=== PATIENT | male | born 1990 | race Caucasian/White ===

== ENCOUNTER 2017-05-01 18:45 | Inpatient (IN) | payer OTHER, BC ==
[~2017-05-01] VITALS: Ht 188 cm; Wt 74.8 kg
--- NOTE | 2017-05-01 21:00 | NUR ---
PRE ADMISSION NOTE Pt is a 26 y/o male, seen at intake, AAOx4, no SOB with mild anxiety, body/bone aches, headache and nausea noted at this time. Discussed with patient the admission policies of the unit. Patient is coherent and able to respond to questions appropriately. Pt is ambulatory with steady gait. Vital signs taken and as follows: BP: 118/75, P: 98, R: 16, O2: 97%, T: 98.2, PA: 9/10. Pt verbalized understanding of instructions and teachings regarding disposal of narcotic and other controlled home medications, unit protocols such as taking of vital signs Q4H and handling and disposal of contraband. Pt reports he takes home medications, but did not bring any with him. Will continue with admission upon pts arrival on the unit.
--- NOTE | 2017-05-01 21:08 | NUR ---
ADMISSION NOTE Pt is a 26 y/o male admitted on 05/01/17 for ETOH, benzo and opiate dependence, arrived on the unit at 2108. Pt reports allergies to Benadryl and peanuts and states he has had over 20 seizures related to w/d and not related. Pt was able to provide UDS. Upon admission COWS 13 and CIWA 14, BP: 118/75, P: 98, R: 16, O2: 97%, T: 98.2, PA: 02/05. Weight 165, height 62. Pt reports he does not have a PCP, has a psychiatrist, smokes 0.5 packs daily, denies being hospitalized within past 30 days, but reports being in [facility] within past 30 days. Pt is able to understand and respond to all questions pertaining to his hospitalization. Substance Abuse History is as follows: 1. Klonazapam PO 12-30 mg daily, last intake of 4 mg on 04/30/17, at this rate for 9 years. 2. Beer 12 pack daily, last intake of 12 pack on 04/29/17, at this rate for 5 years. 3. Wine 1500 ml daily (Beer or Wine daily), last intake of 1500 ml on 04/30/17, at this rate for 5 years. 4. Heroin IV 0.5-1.5 g daily, last intake of 1 gram on 04/30/17, at this rate for 5 years. 5. Fentanyl IV 0.5-1.5 g daily (Heroin or Fentanyl daily), last intake of 1 gram on 04/30/17, at this rate for 5 years. 6. Morphine IV 100 mg occasional/unspecified, last intake of 100 mg 3 weeks ago, at this rate for 9 years. 7. Oxymorphone IV 80 mg occasional/unspecified, last intake of 60 mg 2 weeks ago, at this rate for 7 years. 8. Subutex IV 20-40 mg occasional/unspecified, last intake of 20 mg on 04/28/17, at this rate for 8 months. 9. Hydromorphone IV 50 mg occasional/unspecified, last intake of 50 mg 1.5 weeks ago, at this rate for 3.5 years. 10. Methadone IV 60 mg occasional/unspecified, last intake of 60 mg 3.5 weeks ago, at this rate for 2 months. 11. Percocet IV 30 mg occasional/unspecified, last intake of 30 mg on 04/26/17, at this rate for 12 years. 12. Oxycodone IV 20 mg occasional/unspecified, last intake of 20 mg on 04/26/17, at this rate for 12 years. 13. Marijuana 1-4 grams occasional/Usually on weekends, last intake of 3.5 grams on 04/29/17, at this rate for 12 years. Pts longest sober period for 9 months approximately 7 years ago. Treatment history: [facility] for 6 months in 2015, [facility] for 60 days in 2012, [facility] for 89 days in 2007, [facility] [place] for 2.5 months in 2009, [facility] 3 [place] 2006, [facility] 1 year in 2011. Father has substance use history of ETOH and benzos. Pt reports his father committed suicide 2 years ago. PMH: Anxiety, depression, bipolar disorder, schizoid personality disorder, ADHD, Hepatitis C, pneumonia, septicemia, MRSA, hernia and fractures to the collar bone, ribs and jaw. Pt reports having over 20 seizures related and not related to withdrawal. Pt reports taking medications at home, but did not bring them. Per pt, he takes Klonipin, Vyvance and Adderall. Pt states he does not regularly take Adderall. Upon assessment, pt is AAOx4 and presents with anxiety, pupil dilation, body aches, headache, agitation, nausea, flushed skin, restlessness. Respirations even and unlabored. Denies SOB, chest pain, V/D. Bowel sounds active x 4, abdomen soft. Last BM 2 days ago. PERRLA. Skin intact, no open wounds noted. Pt has large scar over left shoulder from over 7 years ago. Pt denies SI/HI. Pt has hx of two suicide attempts. Educational information provided and left at bedside. Pt oriented to room and encouraged to notify staff with any concerns. Safety measures in place. Call light within reach, side rails up x 2 with pads, bed locked and in low position. Will continue to monitor.
[2017-05-01] MEDS ORDERED: ONDANSETRON ODT 4 MG TAB.RAPDIS SL PRN (23:30)
[2017-05-01] MEDS ORDERED: HYDROXYZINE PAMOATE 25 MG CAPSULE PO PRN (23:30)
[2017-05-01] MEDS ORDERED: LORAZEPAM 1 MG TABLET PO PRN ×2 (23:30)
[2017-05-01] MEDS ORDERED: ACETAMINOPHEN 325 MG TABLET PO PRN (23:30)
[2017-05-01] MEDS ORDERED: MAG HYDROX/AL HYDROX/SIMETH 30 ML LIQUID UDC PO PRN (23:30)
[2017-05-01] MEDS ORDERED: THIAMINE HCL 200 MG/2 ML VIAL IM ONE (23:30)
[2017-05-01] MEDS ORDERED: DICYCLOMINE HCL 20 MG TABLET PO PRN (23:30)
[2017-05-01] MEDS ORDERED: ONDANSETRON 4 MG/2 ML VIAL IM PRN (23:30)
[2017-05-01] MEDS ORDERED: LORAZEPAM 2 MG/1 ML VIAL IM PRN (23:30)
[2017-05-01] MEDS ORDERED: MAGNESIUM HYDROXIDE 30 ML LIQUID UDC PO PRN (23:30)
[2017-05-01] MEDS ORDERED: MIRALAX 17 GM POWD.PACK PO PRN (23:30)
[2017-05-01] MEDS ORDERED: LOPERAMIDE HCL 2 MG CAPSULE PO PRN ×2 (23:30)
[2017-05-01] MEDS ORDERED: diphenhydrAMINE 50 MG CAPSULE PO PRN (23:30)
[2017-05-01] MEDS ORDERED: BUPRENORPHINE HCL 2 MG TAB.SUBL SL PRN (23:45)
[2017-05-02] VITALS: BP 133/79
[2017-05-02] MEDS: IBUPROFEN 600 MG TABLET PO PRN (00:01)
--- NOTE | 2017-05-02 00:01 | NUR ---
PRN ATIVAN 1 MG PO, MOTRIN 600 MG, ZOFRAN 4 MG ODT ADMINISTRATION CIWA 12 at 0000. Pt presents with restlessness, pacing around hallways, moderate anxiety, auditory disturbances "ringing in the ears" and agitation. Pt also presents with headache, body aches, nausea with no vomiting. Safety measures in place. Call light within reach. Will continue to monitor.
[2017-05-02] MEDS ORDERED: THIAMINE HCL 200 MG/2 ML VIAL ONE (00:06)
[2017-05-02] MEDS ORDERED: LORAZEPAM 1 MG TABLET ONE (00:07)
[2017-05-02] MEDS ORDERED: IBUPROFEN 600 MG TABLET ONE (00:07)
[2017-05-02] MEDS ORDERED: ONDANSETRON ODT 4 MG TAB.RAPDIS ONE (00:07)
[2017-05-02 00:24] LABS: *AMPHETAMINE, URINE POSITIVE (NEGATIVE); *BARBITURATE, URINE NEGATIVE (NEGATIVE); *CANNABINOID, URINE POSITIVE (NEGATIVE); *COCCAINE, URINE POSITIVE (NEGATIVE); *OPIATE, URINE POSITIVE (NEGATIVE); *PHENCYCLIDINE SCREEN,URINE NEGATIVE (NEGATIVE)
--- NOTE | 2017-05-02 00:31 | NUR ---
PRN ZOFRAN REASSESSMENT Pt reports some improvement in nausea, reports it is tolerable. Safety measures in place. Call light within reach. Will continue to monitor.
[2017-05-02 00:46] LABS: BASOPHILS # (AUTO) 0.1 K/uL (0.0-8.0); BASOPHILS % (AUTO) 0.7 % (0.0-2.0); EOSINOPHILS # (AUTO) 0.1 K/uL (0.0-0.7); EOSINOPHILS % (AUTO) 1.6 % (0.0-7.0); HEMATOCRIT 47.2 % (40-50); LYMPHOCYTES # (AUTO) 2.5 K/UL (0.8-4.8); LYMPHOCYTES % (AUTO) 30.3 % (20.5-51.5); MEAN CORPUSCULAR HEMOGLOBIN 30.1 UUG (27.0-31.0); MEAN CORPUSCULAR HGB CONC 34 g/dL (32.0-37.0); MEAN CORPUSCULAR VOLUME 88.9 FL (82.0-92.0); MONOCYTES # (AUTO) 0.7 K/UL (0.1-1.30); MONOCYTES % (AUTO) 8.7 % (0.0-11.0); NEUTROPHILS # (AUTO) 4.7 K/UL (1.8-8.9); NEUTROPHILS % (AUTO) 58.7 % (38.5-71.5); PLATELET COUNT (AUTO) 401 K/UL (150-450); RED BLOOD CELL COUNT(AUTO) 5.31 MIL/UL (4.7-6.1); WHITE BLOOD COUNT (AUTO) 8.1 K/UL (4.0-11.2)
[2017-05-02 00:52] LABS: ALANINE AMINOTRANSFERASE 90 U/L (16-63); ALKALINE PHOSPHATASE 48 U/L (50-136); AMYLASE 30 U/L (25-115); ASPARTATE AMINOTRANSFERASE 37 U/L (15-37); BILIRUBIN,TOTAL 0.5 mg/dL (0.2-1.0); CARBON DIOXIDE 26 mmol/L (21-32); CHLORIDE 101 mmol/L (98-107); CREATININE 1.2 mg/dL (0.6-1.3); GLUCOSE 101 mg/dL (74-106); LIPASE 64 U/L (73-393); MAGNESIUM 1.9 mg/dL (1.8-2.4); POTASSIUM 3.5 mmol/L (3.5-5.1); UREA NITROGEN, BLOOD 17 mg/dL (7-18)
[2017-05-02] MEDS ORDERED: BUPRENORPHINE HCL 2 MG TAB.SUBL SL ONE (00:54)
[2017-05-02] MEDS ORDERED: METHOCARBAMOL 750 MG TABLET ONE (00:54)
[2017-05-02] MEDS: METHOCARBAMOL 750 MG TABLET PO PRN ×3 (00:55→17:24)
--- NOTE | 2017-05-02 01:00 | NUR ---
PRN SUBUTEX 4 MG AND ROBAXIN ADMINISTRATION AND ATIVAN AND MOTRIN REASSESSMENT COWS 13, CIWA 10 at 0100. Pt reports mild improvement in anxiety and headache. Pt presents with restlessness, pacing and body aches. Safety measures in place. Call light within reach. Will continue to monitor.
[2017-05-02 01:02] LABS: ETHANOL < 3 MG/DL (0-0)
--- NOTE | 2017-05-02 02:00 | NUR ---
PRN SUBUTEX 4 MG AND ROBAXIN REASSESSMENT Pt reports improvement HR, restlessness, anxiety and body aches but symptoms are still present. Pt continues with occasional pacing around hallways. Safety measures in place. Call light within reach. Will continue to monitor.
[2017-05-02] MEDS ORDERED: LISD70CA PO (03:46)
[2017-05-02] MEDS ORDERED: AMPH30CA3 PO (03:46)
[2017-05-02] MEDS ORDERED: CLON1TAB PO (03:46)
[2017-05-02 04:00] VITALS: BP 118/45
--- NOTE | 2017-05-02 07:31 | NUR ---
END OF SHIFT Pt is a 26 y/o male admitted on 05/01/17 for benzo, ETOH, and opiate dependence. Pt has PMH of seizures (over 20 per pt), anxiety, depression, bipolar disorder, schizoid personality disorder, ADHD, Hepatitis C, pneumonia, septicemia, MRSA and fractures to the collar bone, jaw and ribs. Pt will start a 5 day Ativan and 5 day Subutex taper today. Pt presented with anxiety, restlessness, pacing around hallways, decreased appetite, anxiety, pupil dilation, body aches, headache, agitation, nausea, flushed skin, restlessness, anhedonia and dysphoria. PRN medications Ativan 1 mg, Motrin, Zofran odt, Subutex 4 mg and Robaxin administered, effective in S/S of withdrawal AEB COWS 13 CIWA 14 lowered to COWS 9 CIWA 9 during shift. Pt slept 0 hours. Intake 1355 ml, void x 3, stool x 1. Safety measures in place. Call light within reach. Endorsed to day shift nurse.
[2017-05-02 08:00] VITALS: BP 122/70
--- NOTE | 2017-05-02 08:00 | NUR ---
START OF SHIFT RECEIVED PT WALKING AROUND THE UNIT, A/O X4. RESPIRATIONS EQUAL AND UNLABORED. PT C/O OF RESTLESSNESS, ANXIETY, AUDITORY HALLUCINATIONS, SKIN CRAWLING SENSATIONS, BODY ACHES. PT PRESENTED WITH AGITATION, PUPIL DILATION, ANHEDONIA. PT SLEPT 0 HOURS LAST NIGHT. PT IS ON A 5 DAY ATIVAN AND 5 DAY SUBUTEX TAPER STARTING TODAY 05/02/17. ENCOURAGED PT TO DRINK MORE FLUIDS TO HELP IN DETOX PROCESS. SAFETY MEASURES TAKEN, SIDERAILS UP X2, INSTRUCTED PT TO USE CALL LIGHT IF NEEDED. WILL CONTINUE TO MONITOR.
[2017-05-02] MEDS: DOCUSATE SODIUM 250 MG CAPSULE PO SCH (08:55)
[2017-05-02] MEDS: GABAPENTIN 300 MG CAPSULE PO SCH ×3 (08:55→21:37)
[2017-05-02] MEDS: LORAZEPAM 1 MG TABLET PO SCH ×4 (08:55→21:37)
[2017-05-02] MEDS: THIAMINE HCL 100 MG TABLET PO SCH (08:55)
[2017-05-02] MEDS: MULTIVITAMINS,THERAPEUTIC TABLET PO SCH (08:56)
[2017-05-02] MEDS: FOLIC ACID 1 MG TABLET PO SCH (08:56)
[2017-05-02] MEDS: BUPRENORPHINE HCL 2 MG TAB.SUBL SL SCH ×4 (08:56→21:37)
[2017-05-02] MEDS ORDERED: 5 DAY TAPER BUPRENORPHINE -SERENITY PROTOCOL SL PRN (09:00)
[2017-05-02] MEDS ORDERED: 5 DAY TAPER OF LORAZEPAM -SERENITY PROTOCOL PO PRN (09:00)
[2017-05-02] MEDS ORDERED: TUBERCULIN,PURIF.PROT.DERIV. 5 TU/0.1 ML TEST ID ONE (09:00)
[2017-05-02 12:00] VITALS: BP 125/65
[2017-05-02 16:00] VITALS: BP 119/69
--- NOTE | 2017-05-02 17:24 | NUR ---
PRN Pt has back ache 11/05. Robaxin po prn per MD order given and tolerated well.
--- NOTE | 2017-05-02 18:24 | NUR ---
JOHNNY WILKINS Pt observed walking around in the recreation room. No c/o body aches at this time.
--- NOTE | 2017-05-02 18:47 | NUR ---
END OF SHIFT PT IS, A/O X4. RESPIRATIONS EQUAL AND UNLABORED. PT C/O OF RESTLESSNESS, ANXIETY, AUDITORY HALLUCINATIONS, PT STATES, "I HEAR THE SOUND OF RADIO IN THE BACKGROUND". PT REPORTS HAVING SKIN CRAWLING SENSATIONS, INTERMITTENT CHILLS, AND MILD BODY ACHES. PT PRESENTED WITH AGITATION, PUPIL DILATION, ANHEDONIA. PT IS ON A 5 DAY ATIVAN AND 5 DAY SUBUTEX TAPER STARTING TODAY 05/02/17. PT HAD ROBAXIN 750 MG PO PRN AT 1724 FOR BODY ACHES. PT REPORTED IT WAS EFFECTIVE AT REASSEMENT. ENCOURAGED PT TO DRINK MORE FLUIDS TO HELP IN DETOX PROCESS. SAFETY MEASURES TAKEN, SIDERAILS UP X2, INSTRUCTED PT TO USE CALL LIGHT IF NEEDED. WILL GIVE ALL ENDORSEMENT TO DRILLER MACHINE NURSE.
--- NOTE | 2017-05-02 19:30 | NUR ---
START OF SHIFT Pt is a 26 y/o male admitted on 05/01/17 for benzo, ET OH, and opiate dependence. Pt has PMH of seizures (over 20 per pt), anxiety, depression, bipolar disorder, schizoid personality disorder, ADHD, Hepatitis C, pneumonia, septicemia, MRSA and fractures to the collar bone, jaw and ribs. Pt will start a 5 day Ativan and 5 day Subutex taper today. Pt presented with anxiety, restlessness, difficulty sleeping, decreased appetite, moderate body aches, headache, stuffy nose, intermittent tremors, agitation, intermittent nausea, flushed skin. Pt also presents with red eyes and mild eye irritability. Denies auditory hallucinations at this time. Respirations 15, even and unlabored. Denies V/D. Denies chest pain or SOB. Medications due. Safety measures in place. Call light within reach. Will continue to monitor.
[2017-05-02 20:00] VITALS: BP 115/69
[2017-05-03] VITALS: BP 122/70
--- NOTE | 2017-05-03 | NUR ---
COWS/CIWA DEFERRED Pt is laying in bed with eyes closed, COWS/CIWA deferred, to be assessed when pt is awake. Respirations 18, even and unlabored. Safety measures in place. Call light within reach. Will continue to monitor.
[2017-05-03 04:00] VITALS: BP 107/74
--- NOTE | 2017-05-03 04:00 | NUR ---
COWS/CIWA DEFERRED Pt is laying in bed with eyes closed, COWS/CIWA deferred, to be assessed when pt is awake. Respirations 16, even and unlabored. Safety measures in place. Call light within reach. Will continue to monitor.
[2017-05-03 07:07] LABS: HEPATITIS B SURFACE AG Negative (Negative)
--- NOTE | 2017-05-03 07:11 | NUR ---
END OF SHIFT Pt is a 26 y/o male admitted on 05/01/17 for benzo, ET OH, and opiate dependence. Pt has PMH of seizures (over 20 per pt), anxiety, depression, bipolar disorder, schizoid personality disorder, ADHD, Hepatitis C, SI, pneumonia, septicemia, MRSA and fractures to the collar bone, jaw and ribs. Pt started a 5 day Ativan and 5 day Subutex taper on 05/02/17, tolerating well. Pt presented with anxiety, restlessness, difficulty sleeping, decreased appetite, moderate body aches, headache, stuffy nose, intermittent tremors, agitation, intermittent nausea, flushed skin. Pt also presented with red eyes and mild eye irritability. Denies auditory hallucinations. Scheduled medications administered, effective in S/S of withdrawal as verbalized by pt. Last COWS 8 and CIWA 10 at 1999. Pt slept 8 hours. Intake 1333 ml, void x 3, stool x 0. Safety measures in place. Call light within reach. Pts needs have been met. Endorsed to day shift nurse.
--- NOTE | 2017-05-03 07:59 | NUR ---
Start of shift note; Received report from night nurse. Patient is a 26 year old male admitted on 05/01/17 for Benzodiazepine, ETOH, Opiate dependence. Patient reported history of anxiety, depression, Bipolar disorder, ADHD, Hepatitis C, Pneumonia. Patient was placed on a 5 day Ativan and 5 day Subutex tapers, no adverse reactions noted. Patient is on fall and seizure precaution. Bed in lowest position, call light within reach. Will continue to monitor patient.
[2017-05-03 08:00] VITALS: BP 109/68
[2017-05-03] MEDS: BUPRENORPHINE HCL 2 MG TAB.SUBL SL SCH ×3 (09:19→20:59)
[2017-05-03] MEDS: GABAPENTIN 300 MG CAPSULE PO SCH ×3 (09:20→20:59)
[2017-05-03] MEDS: MULTIVITAMINS,THERAPEUTIC TABLET PO SCH (09:20)
[2017-05-03] MEDS: FOLIC ACID 1 MG TABLET PO SCH (09:20)
[2017-05-03] MEDS: DOCUSATE SODIUM 250 MG CAPSULE PO SCH (09:20)
[2017-05-03] MEDS: LORAZEPAM 1 MG TABLET PO SCH ×3 (09:20→20:59)
[2017-05-03] MEDS: THIAMINE HCL 100 MG TABLET PO SCH (09:20)
[2017-05-03 09:26] LABS: BASOPHILS # (AUTO) 0.1 K/uL (0.0-8.0); BASOPHILS % (AUTO) 1.1 % (0.0-2.0); EOSINOPHILS # (AUTO) 0.5 K/uL (0.0-0.7); EOSINOPHILS % (AUTO) 7.1 % (0.0-7.0); HEMATOCRIT 45.1 % (36.7-47.1); HEMOGLOBIN 15.6 g/dL (12.5-16.3); LYMPHOCYTES # (AUTO) 2.7 K/uL (20.0-40.0); LYMPHOCYTES % (AUTO) 37.6 % (20.5-51.5); MEAN CORPUSCULAR HEMOGLOBIN 30.9 uug (23.8-33.4); MEAN CORPUSCULAR HGB CONC 35 g/dL (32.5-36.3); MEAN CORPUSCULAR VOLUME 89.6 fL (73.0-96.2); MONOCYTES # (AUTO) 0.6 K/uL (2.0-10.0); MONOCYTES % (AUTO) 8.1 % (0.0-11.0); NEUTROPHILS # (AUTO) 3.3 K/uL (1.8-8.9); NEUTROPHILS % (AUTO) 46.1 % (38.5-71.5); PLATELET COUNT (AUTO) 289 K/uL (152-348); RED BLOOD CELL COUNT(AUTO) 5.03 MIL/uL (4.06-5.63); WHITE BLOOD COUNT (AUTO) 7.1 K/uL (3.6-10.2)
[2017-05-03 09:42] LABS: BILIRUBIN,DIRECT 0.1 mg/dL (0.0-0.2); BILIRUBIN,TOTAL 0.4 mg/dL (0.2-1.0); CREATININE 1.1 mg/dL (0.6-1.3); PHOSPHOROUS 5.4 mg/dL (2.5-4.9); POTASSIUM 4.3 mmol/L (3.5-5.1); TOTAL PROTEIN, SERUM 7.3 g/dL (6.4-8.2)
[2017-05-03 12:00] VITALS: BP 114/75
[2017-05-03 16:00] VITALS: BP 133/74
--- NOTE | 2017-05-03 18:21 | NUR ---
End of shift note; Patient is AOx4. Patient is a 26 year old male admitted on 05/01/17 for Benzodiazepine, ETOH, Opiate dependence. Patient reported history of anxiety, depression, Bipolar disorder, ADHD, Hepatitis C, Pneumonia. Patient was placed on a 5 day Ativan and 5 day Subutex tapers, no adverse reactions noted. Patient is on fall and seizure precaution. Bed in lowest position, call light within reach. Patient remained compliant with treatment plan and medication regime. Met all needs.
[2017-05-03 20:00] VITALS: BP 119/91
--- NOTE | 2017-05-03 20:00 | NUR ---
Start of Shift Patient is a 26-year old, male, admitted for Benzodiazepine, ETOH and Opiate dependence. Patient reports history of Anxiety, Depression, Bipolar disorder, ADHD, Hepatitis C, Schizoid Personality Disorder and Pneumonia. Pt is allergic to Diphenhydramine and peanuts and is Full Code and on Regular Diet. Patient was placed on a 5 day Ativan and 5 day Subutex tapers, to be completed onn 05/02. No adverse reactions noted. Pt is AAOx4 and with mild anxiety noted. No SOB and not in respi distress. Pt is ambulatory with steady gait and with no skin issues. Fall, universal, seizure and safety prec in place. Call light within reach. No c/o pain at this time. Latest COWS=4 ,CIWA=6. Will continue to monitor.
[2017-05-04] VITALS: BP 112/78
[2017-05-04 04:00] VITALS: BP 118/75
--- NOTE | 2017-05-04 07:29 | NUR ---
End of Shift Patient is a 26-year old, male, admitted for Benzodiazepine, ETOH and Opiate dependence. Patient reports history of Anxiety, Depression, Bipolar disorder, ADHD, Hepatitis C, Schizoid Personality Disorder and Pneumonia. Pt is allergic to Diphenhydramine and peanuts and is Full Code and on Regular Diet. Patient was placed on a 5 day Ativan and 5 day Subutex tapers, to be completed onn 05/02. No adverse reactions noted. Pt is AAOx4 and with mild anxiety noted. No SOB and not in respi distress. Pt is ambulatory with steady gait and with no skin issues. Fall, universal, seizure and safety prec in place. Call light within reach. No c/o pain at this time. Latest COWS=5, CIWA=5, slept for 6 hours. Endorsed to AM shift nurse for continuity of care.
--- NOTE | 2017-05-04 07:37 | NUR ---
BEGINNING OF SHIFT Patient endorsement report received from multicultural manager nurse, all pertinent information discussed. patient is a 26 year old male admitted on: 05/01/2017, patient with admitting Dx: etoh/bzo/opiates dependence, with substance use of: marijuana and cocaine. Patient currently with ongoing 5 day Ativan and 5 day Subutex taper as ordered, well tolerated. patient is scheduled to start day 3 of taper, will monitor closely. During multicultural manager patient received no PRNs during multicultural manager. last ciwa score of: 5, last cow: 5. slept for 6 hours. Received patient in room. Alert and oriented x 4. On fall and seizure precautions. Educated patient on the current plan of care for the day and medication regimen. Safety measures in place. call light kept with in reach, will continue to monitor closely.
[2017-05-04] MEDS ORDERED: BUPRENORPHINE HCL 2 MG TAB.SUBL SL SCH (09:00)
[2017-05-04] MEDS: DOCUSATE SODIUM 250 MG CAPSULE PO SCH (09:00)
[2017-05-04 09:11] VITALS: BP 110/69
[2017-05-04] MEDS: FOLIC ACID 1 MG TABLET PO SCH (09:12)
[2017-05-04] MEDS: MULTIVITAMINS,THERAPEUTIC TABLET PO SCH (09:12)
[2017-05-04] MEDS: GABAPENTIN 300 MG CAPSULE PO SCH ×3 (09:12→21:36)
[2017-05-04] MEDS: LORAZEPAM 1 MG TABLET PO SCH ×4 (09:13→21:36)
[2017-05-04] MEDS: THIAMINE HCL 100 MG TABLET PO SCH (09:14)
[2017-05-04 12:22] VITALS: BP 129/70
[2017-05-04] MEDS: CLONIDINE HCL 0.1 MG TABLET PO PRN (13:09)
--- NOTE | 2017-05-04 13:09 | NUR ---
PRN TYLENOL/CLONIDINE Patient c/o 12/05 headache, provided with non pharmacological interventions with no relief, administered Tylenol 650mg PO As ordered, will monitor effectiveness. Patient was also noted diaphoretic, c/o increase anxiety and agitation, provided with calming reassurance with no relief, administered clonidine 0.1mg PO as ordered, bp: 129/70 HR: 98. will continue to monitor. patient encouraged adequate PO fluid intake as tolerated.
--- NOTE | 2017-05-04 14:09 | NUR ---
TYLENOL/CLONIDINE REASSESSMENT Patient reports medication effective, current pain level 0/10 no further c/o headaches. Clonidine noted effective, patient reports feeling less anxious and less agitated, patient also noted with no diaphoresis, will continue to monitor. bp: 122/68 heart rate: 86
[2017-05-04] MEDS: BUPRENORPHINE HCL 2 MG TAB.SUBL SL SCH ×2 (14:20→21:36)
--- NOTE | 2017-05-04 16:53 | NUR ---
Therapist prompted client about group times. Client stated he will attend all groups today.
[2017-05-04 17:05] VITALS: BP 128/77
--- NOTE | 2017-05-04 18:34 | NUR ---
END OF SHIFT Patient alert and oriented x4, compliant with therapeutic plan of care. Patient with admitting Dx: bzo/opiate/etoh dependence. Patient continues on 5 day Ativan and 5 day Subutex taper as ordered, well tolerated, patient currently on day 3 of taper, well tolerated, no ASE noted. During shift patient was administered PRN: Clonidine and Tylenol as ordered, medication effective one hour post administration. During shift patient also reported mild auditory hallucinations, reporting that he can hear a radio from far away, Dr. Glynn and Dr. Zhong are aware, patient denies any visual hallucinations. Vital signs WNL during shift. 0900 assessment patient presented with: heart rate 90, flushed, difficulty sitting still, mild bone and joint aches, stuffy nose, tremors that can be felt but not seen, mild anxiety, barely sweating, mild auditory hallucinations, and mild agitation with ciwa score of: 6 and cow score of: 9; 1300 assessment patient presented with: mild nausea with no vomiting, tremors that can be felt but not seen, sweat on forehead, anxiety, mild agitation, mild auditory hallucinations and moderate headache with ciwa score of: 14 and cow score of: 9; 1700 assessment patient presented with: c/o chills, mild bone and joint aches, nasal stuffiness, tremors that can be felt but not seen, mild anxiety, barely sweating, and mild agitation with cow score of: 6 and ciwa score of: 4. Detox medication effective at reducing withdrawal symptoms. Patient encouraged adequate PO fluid intake as tolerated. Encouraged to attend group therapies/sessions to learn new coping skills to prevent relapse, denies any SI/HI. Patients Respirations even and unlabored. No SOB noted, lungs are clear upon auscultation. Skin warm and dry to touch. Abdomen soft and non-distended with (+) BS in all 4 quadrants. No complains of N/V/D or constipation noted. Bladder non-distended. Voids independently. Safety measures in place. Call light kept with in reach. All needs met and rendered. Patient endorsed to shift nurse manager nurse, all pertinent information discussed.
--- NOTE | 2017-05-04 19:10 | NUR ---
Start of Shift Patient Received. Patient is in activities room participating in group activities. Patient is a 26 year old admitted on 05/01/17 for Benzo, ETOH, and Opiate Dependence under the care of Dr. Glynn. Patient is currently receiving a 5 day Ativan and 5 day Subutex taper. Patient verbalizes allergies to Peanuts and Benadryl, wishes to be full code, following a regular diet, placed on fall and seizure precautions, and skin noted intact. Patient verbalizes past medical history of anxiety, depression, bipolar, schizoid personality disorder, ADHD, Hep (+), Pneumonia, Septicemia, MRSA, History or hernia, and history of multiple fractures. Per endorsement, patient was given PRN Tylenol and Clonidine with medication noted to be effective. Last noted COWS 4 and CIWA 6. All needs attended to promptly. Will continue plan of care as ordered.
[2017-05-04 20:20] VITALS: BP 124/74
[2017-05-04] MEDS: METHOCARBAMOL 750 MG TABLET PO PRN (21:36)
--- NOTE | 2017-05-04 21:40 | NUR ---
PRN Medication Administration Patient is noted verbalizing increase muscle aches in lower back. PRN Robaxin administered as per order. Will continue to monitor.
--- NOTE | 2017-05-04 22:30 | NUR ---
PRN Medication Reassessment Patient is in bed awake and watching TV. Patient is able to verbalize PRN Robaxin is effective in minimizing muscle aches. PRN medication noted to be effective. Will continue to monitor.
[2017-05-05] VITALS (7 sets, daily range): BP systolic 90–115; BP diastolic 50–66
--- NOTE | 2017-05-05 07:08 | NUR ---
End of Shift Patient is in his room sleeping. Breathing even and non labored. Patient is a 26 year old admitted on 05/01/17 for Benzo, ETOH, and Opiate Dependence and is currently receiving a 5 day Ativan and 5 day Subutex taper. Patient verbalizes allergies to Peanuts and Benadryl, Full Code, Regular Diet, placed on fall and seizure precautions, and skin noted intact. Patient verbalizes past medical history of anxiety, depression, bipolar, schizoid personality disorder, ADHD, Hep C (+), Pneumonia, Septicemia, MRSA, History or hernia, and history of muliptle fractures. Patient was given PRN Robaxin with medication noted to be effective. Last noted COWS 8 and CIWA 9. All needs attended to promptly. Will endorse to continue plan of care as ordered.
--- NOTE | 2017-05-05 08:00 | NUR ---
rec d patient asleep and arousable to verbal tactile stimulation b/p 90/50 hr 78 , patient didnt eat much breakfast some lunch after receiving ativan and motrin for agitation and pain., remains isolative in room with littl disclosure. continue to monitor for safety and withdrawals.
[2017-05-05] MEDS: DOCUSATE SODIUM 250 MG CAPSULE PO SCH (09:00)
[2017-05-05] MEDS: LORAZEPAM 1 MG TABLET PO SCH ×3 (09:00→20:36)
[2017-05-05] MEDS: GABAPENTIN 300 MG CAPSULE PO SCH ×3 (09:00→20:35)
[2017-05-05] MEDS: BUPRENORPHINE HCL 2 MG TAB.SUBL SL SCH ×3 (09:00→20:35)
[2017-05-05] MEDS: FOLIC ACID 1 MG TABLET PO SCH (09:00)
[2017-05-05] MEDS: MULTIVITAMINS,THERAPEUTIC TABLET PO SCH (09:00)
[2017-05-05] MEDS: THIAMINE HCL 100 MG TABLET PO SCH (09:00)
--- NOTE | 2017-05-05 09:00 | NUR ---
received patient asleep arousable to verbal stimuli after shaking , appears sedated , unable to have blood drawn or take breakfast and meds, continue to monitor for safety.
--- NOTE | 2017-05-05 12:23 | NUR ---
therapist prompted client to attend group, Client agreed to attend.
[2017-05-05] MEDS: IBUPROFEN 600 MG TABLET PO PRN (12:59)
[2017-05-05 13:02] LABS: BILIRUBIN,DIRECT 0.1 mg/dL (0.0-0.2); BILIRUBIN,TOTAL 0.4 mg/dL (0.2-1.0); CREATININE 1.1 mg/dL (0.6-1.3); MAGNESIUM 2.1 mg/dL (1.8-2.4); PHOSPHOROUS 3.6 mg/dL (2.5-4.9); POTASSIUM 4.1 mmol/L (3.5-5.1); TOTAL PROTEIN, SERUM 7.9 g/dL (6.4-8.2)
[2017-05-05 13:08] LABS: BASOPHILS # (AUTO) 0.1 K/uL (0.0-8.0); BASOPHILS % (AUTO) 0.9 % (0.0-2.0); EOSINOPHILS # (AUTO) 0.6 K/uL (0.0-0.7); EOSINOPHILS % (AUTO) 7.2 % (0.0-7.0); HEMATOCRIT 44.9 % (36.7-47.1); HEMOGLOBIN 15.6 g/dL (12.5-16.3); LYMPHOCYTES # (AUTO) 2.5 K/uL (20.0-40.0); LYMPHOCYTES % (AUTO) 31.5 % (20.5-51.5); MEAN CORPUSCULAR HGB CONC 35 g/dL (32.5-36.3); MEAN CORPUSCULAR VOLUME 89.1 fL (73.0-96.2); MONOCYTES # (AUTO) 0.7 K/uL (2.0-10.0); MONOCYTES % (AUTO) 8.5 % (0.0-11.0); NEUTROPHILS # (AUTO) 4.2 K/uL (1.8-8.9); NEUTROPHILS % (AUTO) 51.9 % (38.5-71.5); PLATELET COUNT (AUTO) 303 K/uL (152-348); RED BLOOD CELL COUNT(AUTO) 5.04 MIL/uL (4.06-5.63)
[2017-05-05] MEDS ORDERED: KETOROLAC TROMETHAMINE 30 MG INJ IM PRN (15:15)
--- NOTE | 2017-05-05 17:40 | NUR ---
patient out of room more in the afternoon appears lethargic and listless medicated for anxiety and muscles discomfort . continue to monitor for safety and withdrawal
--- NOTE | 2017-05-05 19:00 | NUR ---
Start of Shift Patient Received. Patient is in the activities room participating in group therapy. Patient is a 26 year old male admitted on 05/01/17 for Benzo, ETOH, and Opiate Dependence and is currently receiving a 5 day Ativan and 5 day Subutex taper. Patient verbalizes allergies to Peanuts and Benadryl, Full Code, Regular Diet, placed on fall and seizure precautions, and skin noted intact. Patient verbalizes past medical history of anxiety, depression, bipolar, schizoid personality disorder, ADHD, Hep C (+), Pneumonia, Septicemia, MRSA, History or hernia, and history of multiple fractures. Per endorsement, patient was medicated for pain and anxiety with medications noted to be effective. Last noted COWS 8 and CIWA 9. All needs attended to promptly. Will continue plan of care as ordered.
[2017-05-05] MEDS: BACLOFEN 10 MG TABLET PO SCH (20:36)
[2017-05-06 00:58] VITALS: BP 113/61
[2017-05-06 04:15] VITALS: BP 99/51
--- NOTE | 2017-05-06 07:14 | NUR ---
End of Shift Patient is in bed sleeping. Breathing even and non labored. Patient is a 26 year old male admitted on 05/01/17 for Benzo, ETOH, and Opiate Dependence and continues a 5 day Ativan and 5 day Subutex taper. Patient verbalizes allergies to Peanuts and Benadryl, Full Code, Regular Diet, placed on fall and seizure precautions, and skin noted intact. Patient verbalizes past medical history of anxiety, depression, bipolar, schizoid personality disorder, ADHD, Hep C (+), Pneumonia, Septicemia, MRSA, History or hernia, and history of multiple fractures. No PRN Medications. Last noted COWS 8 and CIWA 5. All needs attended to promptly. Will endorse to continue plan of care as ordered.
--- NOTE | 2017-05-06 07:35 | NUR ---
START OF SHIFT Received report from bladder tier nurse. Pt is lying in bed resting with respirations even and unlabored.. He is a 26 yo male admitted to [facility] on 05/01 for BZD, ETOH, and Opiate dependence. He is A&O and ambulatory. Allergies to peanut and Benadryl, full code status, on a regular diet. PMH of Hepatitis C, PNA, septicemia, MRSA, hernia, fractures, anxiety, depression, bipolar, schizoid personality DO, and ADHD. On admission he reported using Clonazepam 12-30mg per day, beer 12 pack per day, wine 1500mL per day, and heroin or fentanyl 0.5-1.5 grams per day. He has used morphine, oxymorphone, subutex, hydromorphone, methadone, Percocet, and oxycodone unspecified amounts. 5 day Ativan and 5 day Subutex taper started 05/02. Fall and seizure precautions in place. Bed is down with call light in reach.
[2017-05-06 08:00] VITALS: BP 108/65
[2017-05-06] MEDS ORDERED: BUPRENORPHINE HCL 2 MG TAB.SUBL SL SCH (09:00)
[2017-05-06] MEDS: DOCUSATE SODIUM 250 MG CAPSULE PO SCH (09:59)
[2017-05-06] MEDS: FOLIC ACID 1 MG TABLET PO SCH (09:59)
[2017-05-06] MEDS: LORAZEPAM 1 MG TABLET PO SCH ×2 (09:59→20:34)
[2017-05-06] MEDS: BACLOFEN 10 MG TABLET PO SCH ×3 (09:59→20:34)
[2017-05-06] MEDS: MULTIVITAMINS,THERAPEUTIC TABLET PO SCH (09:59)
[2017-05-06] MEDS: THIAMINE HCL 100 MG TABLET PO SCH (09:59)
[2017-05-06] MEDS: GABAPENTIN 300 MG CAPSULE PO SCH ×3 (09:59→20:34)
[2017-05-06] MEDS: BUPRENORPHINE HCL 2 MG TAB.SUBL SL SCH ×2 (09:59→20:34)
[2017-05-06 12:00] VITALS: BP 119/65
[2017-05-06] MEDS: METHOCARBAMOL 750 MG TABLET PO PRN (13:02)
[2017-05-06] MEDS: CLONIDINE HCL 0.1 MG TABLET PO PRN (13:02)
--- NOTE | 2017-05-06 13:04 | NUR ---
PRN Clonidine and Robaxin Pt reports feeling anxious, restless, and having generalized body aches 12/05. HR 102. PRN Clonidine and Robaxin administered.
--- NOTE | 2017-05-06 14:04 | NUR ---
PRN Clonidine and Robaxin reassessment PRN Clonidine and Robaxin somewhat effective. Pt reports anxiety is slightly reduced and he is less restless. Body aches reduced to 4/10. Encouraged relaxation and deep breathing.
[2017-05-06 16:00] VITALS: BP 106/64
--- NOTE | 2017-05-06 19:15 | NUR ---
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 Pt is in his room resting. He is a 26 yo male admitted to [facility] on 05/01 for BZD, ETOH, and Opiate dependence. He is A&O and ambulatory. Allergies to peanut and Benadryl, full code status, on a regular diet. PMH of Hepatitis C, PNA, septicemia, MRSA, hernia, fractures, anxiety, depression, bipolar, schizoid personality DO, and ADHD. On admission he reported using Clonazepam 12-30mg per day, beer 12 pack per day, wine 1500mL per day, and heroin or fentanyl 0.5-1.5 grams per day. He has used morphine, oxymorphone, subutex, hydromorphone, methadone, Percocet, and oxycodone unspecified amounts. 5 day Ativan and 5 day Subutex taper started 05/02. He is compliant with treatment. PRN Clonidine and Robaxin administered. Last COWS 5 and CIWA 3 He drank 2110mL. Fall and seizure precautions in place. Bed is down with call light in reach.
--- NOTE | 2017-05-06 19:15 | NUR ---
Start of Shift Patient Received. Patient is in his room, awake, alert and verbally responsive. Breathing even and non labored. Patient is a 26 year old male admitted on 05/01/17 for Benzo, ETOH, and Opiate Dependence and continues a 5 day Ativan and 5 day Subutex taper. Patient verbalizes allergies to Peanuts and Benadryl, Full Code, Regular Diet, placed on fall and seizure precautions, and skin noted intact. Patient verbalizes past medical history of anxiety, depression, bipolar, schizoid personality disorder, ADHD, Hep C (+), Pneumonia, Septicemia, MRSA, History or hernia, and history of multiple fractures. Patient was given PRN Robaxin and Clonidine with medication noted to be effective. Last noted COWS 5 and CIWA 3. All needs attended to promptly. Will continue plan of care as ordered.
[2017-05-06 20:26] VITALS: BP 112/67
[2017-05-07 00:42] VITALS: BP 110/75
--- NOTE | 2017-05-07 01:13 | NUR ---
Start of Shift Patient Received. Patient is in his room, awake, alert and verbally responsive. Breathing even and non labored. Patient is a 26 year old male admitted on 05/01/17 for Benzo, ETOH, and Opiate Dependence and continues a 5 day Ativan and 5 day Subutex taper. Patient verbalizes allergies to Peanuts and Benadryl, Full Code, Regular Diet, placed on fall and seizure precautions, and skin noted intact. Patient verbalizes past medical history of anxiety, depression, bipolar, schizoid personality disorder, ADHD, Hep C (+), Pneumonia, Septicemia, MRSA, History or hernia, and history of multiple fractures. Patient was given PRN Robaxin and Clonidine with medication noted to be effective. Last noted COWS 5 and CIWA 3. All needs attended to promptly. Will continue plan of care as ordered. Addendum: 05/07/17 at 0120 by KIEL JASON LVN ENTERED IN ERROR
[2017-05-07 04:00] VITALS: BP 101/63
--- NOTE | 2017-05-07 07:12 | NUR ---
End of Shift Patient is in bed sleeping. Breathing even and non labored. Patient is a 26 year old male admitted on 05/01/17 for Benzo, ETOH, and Opiate Dependence and continues a 5 day Ativan and 5 day Subutex taper. Patient verbalizes allergies to Peanuts and Benadryl, Full Code, Regular Diet, placed on fall and seizure precautions, and skin noted intact. Patient verbalizes past medical history of anxiety, depression, bipolar, schizoid personality disorder, ADHD, Hep C (+), Pneumonia, Septicemia, MRSA, History or hernia, and history of multiple fractures. No PRN medications administered. Last noted COWS 4 and CIWA 4. All needs attended to promply. Will endorse to continue plan of care as ordered.
--- NOTE | 2017-05-07 07:45 | NUR ---
START OF SHIFT RECEIVED PT RESTING IN BED, A/O X4, RESPIRATIONS EVEN AND UNLABORED. PT REPORTS HAVING MILD GENERALIZED BODY ACHES AND ANXIETY. PT IS ALLERGIC TO PEANUTS AND BENADRYL ALLERGY. PT IS ON A 5 DAY ATIVAN AND 5 DAY SUBUTEX TAPER THAT ENDS TODAY. SIDE RAILS UP X2, BED IN LOWEST POSITION. CALL LIGHT IS WITHIN REACH. INSTRUCTED PT TO COMSUME MORE FLUIDS TO FACILITATE DETOX PROCESS. WILL CONTINUE TO MONITOR AND PROVIDE SUPPORT.
[2017-05-07 08:00] VITALS: BP 115/65
[2017-05-07] MEDS ORDERED: BUPRENORPHINE HCL 2 MG TAB.SUBL SL SCH (09:00)
[2017-05-07] MEDS ORDERED: LORAZEPAM 1 MG TABLET PO SCH (09:00)
[2017-05-07] MEDS: FOLIC ACID 1 MG TABLET PO SCH (09:20)
[2017-05-07] MEDS: THIAMINE HCL 100 MG TABLET PO SCH (09:20)
[2017-05-07] MEDS: GABAPENTIN 300 MG CAPSULE PO SCH ×3 (09:20→21:50)
[2017-05-07] MEDS: DOCUSATE SODIUM 250 MG CAPSULE PO SCH (09:20)
[2017-05-07] MEDS: BACLOFEN 10 MG TABLET PO SCH ×3 (09:20→21:51)
[2017-05-07] MEDS: MULTIVITAMINS,THERAPEUTIC TABLET PO SCH (09:21)
[2017-05-07 12:00] VITALS: BP 128/76
[2017-05-07 16:00] VITALS: BP 118/68
--- NOTE | 2017-05-07 19:15 | NUR ---
START OF SHIFT NOTE : Pt. is a 26 yo male admitted to [facility] on 05/01 for BZD, ETOH, and Opiate dependence. Allergies to peanut and Benadryl, full code status, on a regular diet. PMH of Hepatitis C, PNA, septicemia, MRSA, hernia, fractures, anxiety, depression, bipolar, schizoid personality DO, and ADHD. Pt. completed his 5 day Ativan and 5 day Subutex taper started on 05/02, tolerated well. He will be D/C tomorrow. He has no complains at this time, watching TV in the activity room. Safety measures in place : bed on lowest position with side rails x2 up for safety, call light within reach. Will continue to monitor closely and offer help.
--- NOTE | 2017-05-07 19:25 | NUR ---
END OF SHIFT PT RESTING IN BED, A/O X4, RESPIRATIONS EVEN AND UNLABORED. PT REPORTS HAVING MILD GENERALIZED BODY ACHES AND ANXIETY. PT WAS ON A 5 DAY ATIVAN AND 5 DAY SUBUTEX TAPER THAT ENDED TODAY 05/07/17. SIDE RAILS UP X2, BED IN LOWEST POSITION. CALL LIGHT IS WITHIN REACH. INSTRUCTED PT TO COMSUME MORE FLUIDS TO FACILITATE DETOX PROCESS. WILL GIVE ALL PERTINENT INFO AND ENDORSEMENT TO SHIPYARD PAINTER NURSE.
[2017-05-07 20:00] VITALS: BP 130/63
[2017-05-07] MEDS ORDERED: DICY20TA28 PO (20:13)
[2017-05-07] MEDS ORDERED: METH-406 PO (20:13)
[2017-05-07] MEDS ORDERED: IBUP-1955 PO (20:13)
[2017-05-07] MEDS ORDERED: GABA-534 PO ×2 (20:13)
--- NOTE | 2017-05-08 06:32 | NUR ---
END OF SHIFT NOTE : Pt. is a 26 yo male [facility] for BZD, ETOH, and Opiate dependence. Allergies to peanut and Benadryl, full code status, on a regular diet. PMH of Hepatitis C, PNA, septicemia, MRSA, hernia, fractures, anxiety, depression, bipolar, schizoid personality DO, and ADHD. Pt. completed his 5 day Ativan and 5 day Subutex taper started on 05/02, tolerated well. He will be D/C today. Pt remains compliant with the treatment plan. No PRNs were given during my shift. V/S remain WNL. RR=16, even and unlabored, lungs clear upon auscultation, abdomen soft and non- distended. Pt denies nausea, vomiting and diarrhea. CIWA and COWS taken when pt. was alert during the night, LAST CIWA=2 ,COWS=2 at 0400 , INTAKE= 1302 ml, voided x4 , slept 5 hours. Safety measures in place : bed on lowest position with side rails x2 up for safety, call light within reach. Will continue to monitor closely and offer help.
--- NOTE | 2017-05-08 07:45 | NUR ---
START OF SHIFT RECEIVED PT RESTING IN BED, A/O X4, RESPIRATIONS EVEN AND UNLABORED. PT REPORTS HAVING MILD ANXIETY. PT IS ALLERGIC TO PEANUTS AND BENADRYL ALLERGY. PT IS TO BE DISCHARGED TODAY. SIDE RAILS UP X2, BED IN LOWEST POSITION. CALL LIGHT IS WITHIN REACH. WILL CONTINUE TO MONITOR AND PROVIDE SUPPORT.
[2017-05-08 08:00] VITALS: BP 103/55
[2017-05-08] MEDS: FOLIC ACID 1 MG TABLET PO SCH (08:11)
[2017-05-08] MEDS: THIAMINE HCL 100 MG TABLET PO SCH (08:11)
[2017-05-08] MEDS: GABAPENTIN 300 MG CAPSULE PO SCH (08:11)
[2017-05-08] MEDS: MULTIVITAMINS,THERAPEUTIC TABLET PO SCH (08:11)
[2017-05-08] MEDS: BACLOFEN 10 MG TABLET PO SCH (08:11)
[2017-05-08] MEDS: DOCUSATE SODIUM 250 MG CAPSULE PO SCH (08:11)
--- NOTE | 2017-05-08 08:18 | NUR ---
PT SIGNED D/C PAPERS. NO HOME MEDICATIONS. VVS.
--- NOTE | 2017-05-08 09:18 | NUR ---
DISCHARGE NOTE PT LEFT UNIT AT 0918 IN STABLE CONDITION WITH ALL BELONGINGS TO [facility] VIA [facility] [facility]. ALL D/C PAPERS SIGNED.
== END 2017-05-08 09:18 | disposition other institution (70) | DRG 895 ==
LOC: SRC 20:21
PROVIDERS: ADMIT Internal Medicine; ATTEND Internal Medicine
PROC: HZ2ZZZZ Detoxification Services for Substance Abuse Treatment (ICD-10-PCS; principal; 2017-05-01)
PROC: HZ41ZZZ Group Counseling for Substance Abuse Treatment, Behavioral (ICD-10-PCS; 2017-05-02)
DX: F10.230 Alcohol dependence with withdrawal, uncomplicated (principal); K70.10 Alcoholic hepatitis without ascites; F31.9 Bipolar disorder, unspecified; F11.23 Opioid dependence with withdrawal; Y90.9 Presence of alcohol in blood, level not specified; F41.1 Generalized anxiety disorder; F90.9 Attention-deficit hyperactivity disorder, unspecified type; Z59.1 Inadequate housing; F17.210 Nicotine dependence, cigarettes, uncomplicated; F13.230 Sedative, hypnotic or anxiolytic dependence with withdrawal, uncomplicated; Z81.1 Family history of alcohol abuse and dependence; Z81.8 Family history of other mental and behavioral disorders; Z79.899 Other long term (current) drug therapy; H93.19 Tinnitus, unspecified ear; Z59.0 Homelessness; Z91.89 Other specified personal risk factors, not elsewhere classified; F12.10 Cannabis abuse, uncomplicated; F14.10 Cocaine abuse, uncomplicated; F15.10 Other stimulant abuse, uncomplicated; B19.20 Unspecified viral hepatitis C without hepatic coma
CPT/HCPCS: 36415; 70030-TC; 80307; 80324; 80346; 80349; 80353; 80361; 83690; 83735; 84100; 85025; 86580; 86592; 86705; 86803; 87340; 87806; A4663; G0480; J3411; Q0162